=== PATIENT | male | born 1940 | race Caucasian/White ===

== ENCOUNTER → 2017-02-04 | Outpatient (CLI) | payer OTHER ==
[~2017-02-04] MED LIST: ALLO100T PO; AMLO5CAP2 PO; ASPI1TAB83 PO; ATOR-24 PO; BIOFTAB30 PO; CANA1TAB PO; FEXO-101 PO; INSU1INJ33 SC; METF-384 PO; MULTTAB58 PO; NVLGI SC; OMEG12006 PO; PREG1CAP28 PO; TNR50
--- NOTE | 2017-02-04 16:57 | DIAGNOSTIC IMAGING REPORT ---
R HIP UNILATERAL 2 VIEWS CLINICAL HISTORY: Worsening right hip pain. COMPARISON: None FINDINGS: Incidental note is made of brachytherapy seeds within the prostate. Alignment of the right hip is anatomic. No fracture or suspicious lesion is evident. There is mild to moderate osteophytosis the right hip. There is no radiographic evidence of avascular necrosis. IMPRESSION: 1. Mild to moderate osteoarthritis of the right hip. 2. No acute fracture. Electronically signed by: Juan Diaz M.D. 02/04/2017 4:56 PM Dictated Date/Time: 02/04/2017 4:55 PM
== END | disposition home or self-care (01) ==
LOC: C.RADBC 15:52
PROVIDERS: ATTEND Physician Assistant
DX: M25.551 Pain in right hip (principal)